=== PATIENT | male | born 1955 | race Caucasian/White ===

== ENCOUNTER 2021-02-25 15:15 | Emergency (ER) | payer MEDICARE ==
[~2021-02-25] VITALS: Ht 180.3 cm; Wt 134.1 kg
[2021-02-25 16:59] LABS: HEMATOCRIT 49.9 % (39.0-50.0); HEMOGLOBIN 16.6 g/dl (14.0-18.0); IMMATURE GRANULOCYTES 0.8 % (0.0-5.0); MEAN CELL VOLUME 90.7 fL CALC (80.0-100.0); MEAN CORPUSCULAR HGB 30.2 pG CALC (26.0-32.0); MEAN CORPUSCULAR HGB CONC 33.3 g/dL CAL (32.0-36.0); NEUT# 8.22 thou/uL (1.82-7.42); RED BLOOD COUNT 5.5 mill/uL (4.70-6.10); RED CELL DISTRI WIDTH 12.2 % (11.5-15.5)
[2021-02-25 17:14] LABS: ALBUMIN 4.6 g/dL (3.2-5.0); ALKALINE PHOSPHATASE 97 u/l (38-126); ANION GAP 13 (6-22 (CALC)); BILIRUBIN, TOTAL 1.3 mg/dL (0.0-1.4); BUN 19 mg/dL (8-23); BUN/CREATININE RATIO 23 (12-20 (CALC)); CARBON DIOXIDE 28 mmol/l (22-30); CHLORIDE 103 mmol/l (95-108); CREATININE 0.8 mg/dL (0.7-1.3); GFR > 60 ML/MIN (>=60 (CALC)); GFR FOR AFR.AMER. > 60 ML/MIN (>=60 (CALC)); SGOT/AST 91 u/l (19-48); SODIUM 139 mmol/l (137-146); TOTAL PROTEIN 7.8 g/dL (6.3-8.2)
[2021-02-25 18:05] VITALS: BP 134/76
[2021-02-25] MEDS ORDERED: ASPIRIN REGULA325 M1 PO (18:06)
[2021-02-25] MEDS ORDERED: LISINOP/HCTZ1 TA1 PO (18:06)
[2021-02-25] MEDS ORDERED: METOPROL TAR25 M1 PO (18:07)
[2021-02-25] MEDS ORDERED: PLAVIX75 MG PO (18:08)
[2021-02-25] MEDS ORDERED: PRAVASTATIN40 MG PO (18:09)
[2021-02-25] MEDS ORDERED: COQ-10100 M1 PO (18:09)
[2021-02-25] MEDS ORDERED: DESVENLAFAXINE50 M2 PO (18:10)
[2021-02-25] MEDS ORDERED: ALPRAZOLAM ER0.5 MG PO (18:10)
[2021-02-25] MEDS ORDERED: ESOMEPRAZOLE MA40 MG PO (18:11)
== END 2021-02-25 18:05 | disposition home or self-care (01) ==
LOC: ED 15:15
PROVIDERS: Family Medicine
DX: F41.0 Panic disorder [episodic paroxysmal anxiety] (principal); I10 Essential (primary) hypertension; F32.A Depression, unspecified; E78.5 Hyperlipidemia, unspecified; N40.0 Benign prostatic hyperplasia without lower urinary tract symptoms; Z95.5 Presence of coronary angioplasty implant and graft
CPT/HCPCS: J2060

== ENCOUNTER 2023-03-06 09:53 | Emergency (ER) | payer MEDICARE ==
[2023-03-06] VITALS (7 sets, daily range): BP systolic 118–151; BP diastolic 69–94
[~2023-03-06] VITALS: Ht 182.9 cm; Wt 127.0 kg
[~2023-03-06 09:53] MED LIST: ALPRAZOLAM ER0.5 MG PO; ASPIRIN REGULA325 M1 PO; COQ-10100 M1 PO; DESVENLAFAXINE50 M2 PO; ESOMEPRAZOLE MA40 MG PO; LISINOP/HCTZ1 TA1 PO; METOPROL TAR25 M1 PO; PLAVIX75 MG PO; PRAVASTATIN40 MG PO
[2023-03-06 10:41] LABS: BASO% 0.5 % (0-3); EOS% 1.3 % (0-8); HEMATOCRIT 46.5 % (39.0-50.0); HEMOGLOBIN 15.4 g/dl (14.0-18.0); IMMATURE GRANULOCYTES 1.2 % (0.0-5.0); MEAN CELL VOLUME 91.5 fL CALC (80.0-100.0); MEAN CORPUSCULAR HGB 30.3 pG CALC (26.0-32.0); MEAN CORPUSCULAR HGB CONC 33.1 g/dL CAL (32.0-36.0); MONO% 5.8 % (2-13); NEUT# 8.03 thou/uL (1.82-7.42); NEUT% 77.2 % (42-76); RED BLOOD COUNT 5.08 mill/uL (4.70-6.10); RED CELL DISTRI WIDTH 12.2 % (11.5-15.5)
[2023-03-06 10:45] LABS: URINE BILIRUBIN - DIPSTICK Negative (NEGATIVE); URINE BLOOD DIPSTICK Large (NEGATIVE); URINE COLOR Yellow; URINE GLUCOSE - DIPSTICK 100 mg/dL (NEGATIVE); URINE KETONE Negative (NEGATIVE); URINE LEUK ESTERASE Trace (NEGATIVE); URINE NITRITE - DIPSTICK Negative (Negative); URINE PH 5.5 (4.5-8.0); URINE PROTEIN - DIPSTICK 30 mg/dL (NEG-TRACE); URINE SPECIFIC GRAVITY >=1.030
[2023-03-06 10:56] LABS: URINE RBC 25-50 RBC/hpf (0-5); URINE SQUAMOUS EPITHELIAL CELL FEW EPI/hpf (0-FEW); URINE YEAST FEW hpf
[2023-03-06 10:58] LABS: ALBUMIN 4.8 g/dL (3.2-5.0); ALKALINE PHOSPHATASE 93 u/l (38-126); BUN 27 mg/dL (8-23); BUN/CREATININE RATIO 28 (12-20 (CALC)); CARBON DIOXIDE 29 mmol/l (22-30); CHLORIDE 104 mmol/l (95-108); CREATININE 0.9 mg/dL (0.7-1.3); GFR FOR AFR.AMER. > 60 ML/MIN (>=60 (CALC)); GFR OTHER RACES > 60 ML/MIN (>=60 (CALC)); SGOT/AST 44 u/l (19-48); SODIUM 142 mmol/l (137-146); TOTAL PROTEIN 6.8 g/dL (6.3-8.2)
[2023-03-06 10:59] LABS: URINE BACTERIA MODERATE hpf
[2023-03-06 11:02] LABS: ANION GAP 14 (6-22 (CALC)); BILIRUBIN, TOTAL 0.6 mg/dL (0.2-1.3); POTASSIUM 4.9 mmol/l (3.5-5.1)
[2023-03-06 11:02] LABS: URINE MUCUS FEW hpf (NONE-FEW)
[2023-03-06] MEDS ORDERED: LIPITOR80 M1 PO (11:47)
[2023-03-06] MEDS ORDERED: DESVENLAFAXINE100 MG PO (11:51)
[2023-03-06] MEDS ORDERED: TAMSULOSIN0.4 MG PO (11:55)
[2023-03-06] MEDS ORDERED: [UNRECOGNIZED DRUG - OTHER] PO (11:57)
[2023-03-06] MEDS ORDERED: AVALIDE 150-12.1 TAB PO (11:58)
[2023-03-06] MEDS ORDERED: TRULICITY1.5 MG/0.5 IM (11:59)
[2023-03-06] MEDS ORDERED: FISH OIL1000 M1 PO (12:00)
[2023-03-06] MEDS ORDERED: MULT VITAMI1 PO (12:00)
[2023-03-06] MEDS ORDERED: HYDROCO/APAP1 TA9 PO (12:36)
[2023-03-06] MEDS ORDERED: TORADOL PO (12:36)
[2023-03-06] MEDS ORDERED: OMNICEF300 MG PO (12:36)
[2023-03-06] MEDS ORDERED: ZOFRAN4 MG/TAB PO (12:38)
== END 2023-03-06 12:55 | disposition home or self-care (01) ==
LOC: ED 09:53
PROVIDERS: Family Medicine
DX: N13.2 Hydronephrosis with renal and ureteral calculous obstruction (principal); E11.9 Type 2 diabetes mellitus without complications; I10 Essential (primary) hypertension; E66.01 Morbid (severe) obesity due to excess calories; F41.9 Anxiety disorder, unspecified; F32.A Depression, unspecified; E78.5 Hyperlipidemia, unspecified; Z95.5 Presence of coronary angioplasty implant and graft